=== PATIENT | female | born 1955 | race Caucasian/White ===

== ENCOUNTER 2018-03-18 15:25 | Emergency (ER) | END 2018-03-18 18:35 | disposition home or self-care (01) ==

== ENCOUNTER 2018-06-10 23:51 | Emergency (ER) | payer OTHER ==
[~2018-06-10] VITALS: Ht 165.1 cm; Wt 97.7 kg
[~2018-06-10 23:51] MED LIST: ASPI-650 PO; CLON-379 PO; HYDR25TA6 PO; IBUP-1542 PO; INSU100V23 SC; LANS30TA6 PO; METO-335 PO; NPH,100V10 SC; PANT40TA3 PO; SIME125T7 PO
[2018-06-11] MEDS ORDERED: METOCLOPRAMIDE 10 MG INJ IM ONE
[2018-06-11 00:03] VITALS: Ht 165.1 cm; Wt 97.7 kg
--- NOTE | 2018-06-11 01:31 | ERD ---
ER Documentation Chief Complaint Chief Complaint ETOH X4 SHOTS OF TEQUILA + BEERS; VOMITING AND HTN ON ARRIVAL HPI This is a 63-year-old female who comes in vomiting after she had 4 shots of tequila multiple beers. Patient was vomiting on route via EMS. She does not normally drink. Denies any fevers or chills. Denies any other current complaints. ROS All systems reviewed and are negative except as per history of present illness. Medications Home Meds Active Scripts Simethicone (Gas-X) 125 Mg Tab.chew, 125 MG PO QID, #20 TAB.CHEW Prov:DANYEL CARTAGENA MD 03/18/18 Ibuprofen* (Ibuprofen*) 600 Mg Tablet, 600 MG PO Q6H PRN for PAIN, #20 TAB Prov:DANYEL CARTAGENA MD 03/18/18 Pantoprazole* (Protonix*) 40 Mg Tablet.dr, 40 MG PO DAILY, #20 TAB Prov:DANYEL CARTAGENA MD 03/18/18 Reported Medications Nph, Human Insulin Isophane* (Novolin N*) 100 U/Ml Vial, 70 UNIT SC BID, VIAL 04/26/14 Insulin Regular, Human* (Novolin R*) 100 U/Ml Vial, 5 UNIT SC AC MEALS, VIAL 04/26/14 Metoprolol Succinate* (Toprol XL*) 25 Mg Tab.sr.24h, 25 MG PO BID, TAB 04/26/14 Lansoprazole* (Prevacid* Soltab) 30 Mg Tab, 30 MG PO DAILY 09/09/09 Clonidine Hcl* (Clonidine Hcl*) 0.1 Mg Tab, 0.1 MG PO QID 09/09/09 Aspirin (Aspirin) 81 Mg Tablet, 81 MG PO DAILY 06/17/09 Hydrochlorothiazide (Hydrochlorothiazide) 25 Mg Tablet, 25 MG PO DAILY 06/17/09 Allergies Allergies: Coded Allergies: morphine (Verified Allergy, Unknown, 04/26/14) PMhx/Soc History of Surgery: Yes ( X 2,TUBAL LIGATION) Anesthesia Reaction: No Hx Neurological Disorder: No Hx Respiratory Disorders: Yes (ASTHMA) Hx Cardiac Disorders: Yes (HTN) Hx Psychiatric Problems: Yes (DEPRESSION) Hx Miscellaneous Medical Probl: Yes (HEP C) Hx Alcohol Use: Yes (SOMETIMES) Hx Substance Use: No Hx Tobacco Use: No Smoking Status: Never smoker Physical Exam Vitals Vital Signs Date Temp Pulse Resp B/P (MAP) Pulse Ox O2 O2 Flow FiO2 Time Delivery Rate 06/11/18 87 24 197/117 98 00:03 (143) Physical Exam Const: No acute distress Head: Atraumatic Eyes: Normal Conjunctiva ENT: Normal External Ears, Nose and Mouth. Neck: Full range of motion. No meningismus. Resp: Clear to auscultation bilaterally Cardio: Regular rate and rhythm, no murmurs Abd: Soft, non tender, non distended. Normal bowel sounds Skin: No petechiae or rashes Back: No midline or flank tenderness Ext: No cyanosis, or edema Neur: Awake and alert Psych: Normal Mood and Affect Results 24 hrs Current Medications Medications Dose Sig/Maday Start Time Status Last (Trade) Ordered Route PRN Stop Time Admin Dose Reason Admin 10 mg ONCE ONCE 06/11/18 DC 06/11/18 Metoclopramid IM 00:00 06/11/18 00:06 e HCl 00:03 (Reglan) Procedures/MDM Medical decision m[age]-year-old female here with alcohol intoxication. Given Reglan intramuscularly with good effect. At this point clinically stable. Patient will be discharged home. Departure Diagnosis: Primary Impression: Alcoholic intoxication Complication of substance-induced condition: uncomplicated Qualified Codes: F10.920 - Alcohol use, unspecified with intoxication, uncomplicated Condition: Stable Patient Instructions: Alcohol Intoxication JUAN LUIS MCCABE Jun 11, 2018 01:31
[2018-06-11 01:47] VITALS: BP 131/83; PULSE 89; RESP 16
== END 2018-06-11 01:45 | disposition home or self-care (01) ==
LOC: E/R 23:51
DX: F10.920 Alcohol use, unspecified with intoxication, uncomplicated (principal); R40.2142 Coma scale, eyes open, spontaneous, at arrival to emergency department; R40.2362 Coma scale, best motor response, obeys commands, at arrival to emergency department; R40.2242 Coma scale, best verbal response, confused conversation, at arrival to emergency department; I10 Essential (primary) hypertension; J45.909 Unspecified asthma, uncomplicated; Z79.4 Long term (current) use of insulin; Z79.82 Long term (current) use of aspirin
CPT/HCPCS: 96372; J2765; Z7502

== ENCOUNTER 2018-09-15 14:44 | Emergency (ER) | payer OTHER ==
[~2018-09-15] VITALS: Ht 165.1 cm; Wt 103.1 kg
[2018-09-15 14:57] VITALS: Ht 165.1 cm; Wt 103.1 kg
--- NOTE | 2018-09-15 16:45 | ERD ---
ER Documentation Chief Complaint Chief Complaint lower extremity swelling x3 days HPI The patient is a 63-year-old female, presenting to the ER because of bilateral lower extremity swelling for 1 week, had similar symptoms previously, denies fever, chills, cough, neck pain, chest pain, dyspnea, abdominal pain, vomiting, diarrhea. She does not smoke, drinks socially Medical history: Diabetes mellitus, hypertension, asthma, depression, hepatitis C, anxiety Past surgical history: , tubal ligation ROS All systems reviewed and are negative except as per history of present illness. Medications Home Meds Active Scripts Sulfamethoxazole/Trimethoprim* (Bactrim Ds* Tablet) 1 Each Tablet, 1 TAB PO BID, #14 TAB Prov:DANYEL CARTAGENA MD 09/15/18 Reported Medications Triamcinolone Acetonide* (Kenalog*) 0.1%-15GM Cr, 1 APPLIC TOP BID, #1 TUB 09/15/18 Mineral Oil/Petrolatum,White (ARTIFICIAL TEARS EYE OINT) 3.5 Gm Oint...g., 1 AP PLIC RIGHT EYE BID, #1 TUB 09/15/18 Amlodipine Besylate* (Norvasc*) 5 Mg Tablet, 5 MG PO DAILY, TAB 09/15/18 Mometasone Furoate (Asmanex) 110 Mcg Aer.pow.ba, 220 MCG IH BID 09/15/18 Metoprolol Tartrate* (Lopressor*) 50 Mg Tab, 50 MG PO BID, #60 TAB 09/15/18 Metformin Hcl* (Metformin Hcl*) 1,000 Mg Tablet, 1000 MG PO WITH BREAKFAST DINNE, #60 TAB 09/15/18 Losartan Potassium* (Losartan Potassium*) 100 Mg Tablet, 100 MG PO DAILY, TAB 09/15/18 Loratadine* (Loratadine*) 10 Mg Tablet, 10 MG PO DAILY, #30 TAB 09/15/18 Insulin Regular, Human (Humulin R) 100 Unit/1 Ml Vial, 0 IJ BID, VIAL 30 UNITS-QAM AND 20 UNITS-QPM 09/15/18 Insulin NPH Human Isophane (Humulin N) 100 Unit/1 Ml Vial, 0 SQ BID, VIAL 60 UNITS-QAM AND 40 UNITS-QPM 09/15/18 Hydrochlorothiazide* (Hydrochlorothiazide*) 25 Mg Tab, 25 MG PO DAILY, #30 TAB 09/15/18 Famotidine* (Famotidine*) 20 Mg Tablet, 20 MG PO BID, #60 TAB 09/15/18 Hydrophilic Base* (Aquaphor*) 454 Gm-Topical Oint, 1 APPLIC TOP BID, JAR 09/15/18 Clotrimazole* (Clotrimazole* AF) 1% - 30 Gm Cream.gm., 1 APPLIC TOP BID, TUB 09/15/18 Citalopram Hydrobromide* (Citalopram Hydrobromide*) 20 Mg Tablet, 20 MG PO DAILY, #30 TAB 09/15/18 Ammonium Lactate* (Lac-Hydrin* 12% (225gm)) 1 Applic Lotion, 1 APPLIC TOP BID, BOTTLE 09/15/18 Albuterol Sulfate (Proair Respiclick) 90 Mcg Aer.pow.ba, 2 PUFFS INHALATION Q4H PRN for WHEEZING AND SOB, #1 BOTTLE 09/15/18 Discontinued Reported Medications Nph, Human Insulin Isophane* (Novolin N*) 100 U/Ml Vial, 70 UNIT SC BID, VIAL 04/26/14 Insulin Regular, Human* (Novolin R*) 100 U/Ml Vial, 5 UNIT SC AC MEALS, VIAL 04/26/14 Metoprolol Succinate* (Toprol XL*) 25 Mg Tab.sr.24h, 25 MG PO BID, TAB 04/26/14 Lansoprazole* (Prevacid* Soltab) 30 Mg Tab, 30 MG PO DAILY 09/09/09 Clonidine Hcl* (Clonidine Hcl*) 0.1 Mg Tab, 0.1 MG PO QID 09/09/09 Aspirin (Aspirin) 81 Mg Tablet, 81 MG PO DAILY 06/17/09 Hydrochlorothiazide (Hydrochlorothiazide) 25 Mg Tablet, 25 MG PO DAILY 06/17/09 Discontinued Scripts Simethicone (Gas-X) 125 Mg Tab.chew, 125 MG PO QID, #20 TAB.CHEW Prov:DANYEL CARTAGENA MD 03/18/18 Ibuprofen* (Ibuprofen*) 600 Mg Tablet, 600 MG PO Q6H PRN for PAIN, #20 TAB Prov:DANYEL CARTAGENA MD 03/18/18 Pantoprazole* (Protonix*) 40 Mg Tablet.dr, 40 MG PO DAILY, #20 TAB Prov:DANYEL CARTAGENA MD 03/18/18 Allergies Allergies: Coded Allergies: morphine (Verified Allergy, Unknown, 09/15/18) PMhx/Soc History of Surgery: Yes ( X 2,TUBAL LIGATION) Anesthesia Reaction: No Hx Neurological Disorder: No Hx Respiratory Disorders: Yes (ASTHMA) Hx Cardiac Disorders: Yes (HTN) Hx Psychiatric Problems: Yes (DEPRESSION) Hx Miscellaneous Medical Probl: Yes (HEP C) Hx Alcohol Use: Yes (SOMETIMES) Hx Substance Use: No Hx Tobacco Use: No Physical Exam Vitals Vital Signs Date Temp Pulse Resp B/P (MAP) Pulse Ox O2 O2 Flow FiO2 Time Delivery Rate 09/15/18 77 18 164/86 100 Room Air 19:07 (112) 09/15/18 98.3 86 20 155/109 98 Room Air 17:37 (124) 09/15/18 Nasal 17:17 Cannula 09/15/18 97.9 91 18 194/90 99 14:57 (124) Physical Exam Const: No acute distress. Head: Atraumatic. Eyes: Normal Conjunctiva. ENT: Normal External Ears, Nose and Mouth. Neck: Full range of motion. No meningismus. Resp: Clear to auscultation bilaterally. Cardio: Regular rate and rhythm. Abd: Soft, non distended, normal bowel sounds, non tender. Skin: No petechiae or rashes. Back: No midline or flank tenderness. Ext: Mild bilateral leg edema, vague calf discomfort Neur: Awake and alert. No focal deficit Psych: Anxious Result Diagram: 09/15/18 1733 09/15/18 1733 Results 24 hrs Laboratory Tests Test 09/15/18 17:19 09/15/18 17:33 Bedside Urine pH (LAB) 5.5 Bedside Urine Protein (LAB) 1+ Bedside Urine Glucose (UA) Negative Bedside Urine Ketones (LAB) Negative Bedside Urine Blood Negative Bedside Urine Nitrite (LAB) Negative Bedside Urine Leukocyte Esterase (L 1+ White Blood Count 7.2 10^3/ul Red Blood Count 4.04 10^6/ul Hemoglobin 11.5 g/dl Hematocrit 35.0 % Mean Corpuscular Volume 86.6 fl Mean Corpuscular Hemoglobin 28.5 pg Mean Corpuscular Hemoglobin Concent 32.9 g/dl Red Cell Distribution Width 14.6 % Platelet Count 238 10^3/UL Mean Platelet Volume 11.4 fl Immature Granulocytes % 0.300 % Neutrophils % 46.3 % Lymphocytes % 41.2 % Monocytes % 7.3 % Eosinophils % 4.3 % Basophils % 0.6 % Nucleated Red Blood Cells % 0.0 /100WBC Immature Granulocytes # 0.020 10^3/ul Neutrophils # 3.3 10^3/ul Lymphocytes # 3.0 10^3/ul Monocytes # 0.5 10^3/ul Eosinophils # 0.3 10^3/ul Basophils # 0.0 10^3/ul Nucleated Red Blood Cells # 0.0 10^3/ul Sodium Level 138 mmol/L Potassium Level 3.9 mmol/L Chloride Level 102 mmol/L Carbon Dioxide Level 27 mmol/L Anion Gap 9 Blood Urea Nitrogen 35 mg/dl Creatinine 1.03 mg/dl Est Glomerular Filtrat Rate mL/min 54 mL/min Glucose Level 135 mg/dl Calcium Level 9.3 mg/dl Total Bilirubin 0.2 mg/dl Direct Bilirubin 0.00 mg/dl Indirect Bilirubin 0.2 mg/dl Aspartate Amino Transf (AST/SGOT) 188 IU/L Alanine Aminotransferase (ALT/SGPT) 163 IU/L Alkaline Phosphatase 262 IU/L B-Type Natriuretic Peptide 257 PG/ML Total Protein 7.7 g/dl Albumin 3.9 g/dl Globulin 3.80 g/dl Albumin/Globulin Ratio 1.02 Current Medications Medications Dose Sig/Maday Start Time Status Last (Trade) Ordered Route PRN Stop Time Admin Dose Reason Admin Lorazepam 0.5 mg ONCE ONCE 09/15/18 DC 09/15/18 (Ativan) PO 17:00 09/15/18 17:09 17:01 Procedures/[place] [id number] Radiology Main Line: [phone] DIAGNOSTIC IMAGING REPORT Patient: ANDRE BLAND : 1955 Age: 63 Sex: F MR #: [id number] DOS: 09/15/18 1658 Ordering MD: DANYEL CARTAGENA MD Location: E/R Room/Bed: PROCEDURE: XR Chest 1 View. CLINICAL INDICATION: Shortness of breath. TECHNIQUE: Single view of the chest was obtained. COMPARISON: None. FINDINGS: Mediastinum: Within normal limits of size. Lungs: Scattered subsegmental atelectasis in both lungs. Mildly elevated right hemidiaphragm. No consolidations. No pneumothorax. Osseous structures: Intact. Degenerative changes in the shoulders. Other: None. IMPRESSION: Scattered subsegmental atelectasis in both lungs. Mildly elevated right hemidiaphragm. RPTAT: AA .Efraín García MD, Date Time Electronically viewed and signed by .Efraín García MD, MD on 09/15/2018 18:21 .P/ CC: DANYEL CARTAGENA MD [id number] [place] [id number] Radiology Main Line: [phone] DIAGNOSTIC IMAGING REPORT Patient: ANDRE BLAND : 1955 Age: 63 Sex: F MR #: [id number] DOS: 09/15/18 1658 Ordering MD: DANYEL CARTAGENA MD Location: E/R Room/Bed: PROCEDURE: US Bilateral Lower Extremity Venous. CLINICAL INDICATION: Lower extremity pain and swelling. TECHNIQUE: Multiple sonographic images of the bilateral lower extremity deep venous system was obtained utilizing grayscale, color-flow, Doppler and compressive sonography. The images were reviewed on a PACS workstation. COMPARISON: None. FINDINGS: Right: Common femoral vein: Compressible and vascular flow. Femoral vein: Compressible and vascular flow. Popliteal vein: Compressible and vascular flow. Calf veins: Compressible and vascular flow. Left: Common femoral vein: Compressible and vascular flow. Femoral vein: Compressible and vascular flow. Popliteal vein: Compressible and vascular flow. Calf veins: Compressible and vascular flow. IMPRESSION: No sonographic evidence for deep venous thrombosis. RPTAT: AA .Efraín García MD, MD Date Time Electronically viewed and signed by .Efraín García MD, MD on 09/15/2018 18:22 .P/ CC: DANYEL CARTAGENA MD [id number] EKG: Read by emergency physician Rate/Rhythm: Normal Sinus Rhythm 77 beats/min QRS, ST, T-waves: No ST elevation, no T inversion Impression: Normal EKG MEDICAL MAKING DECISION: The patient is a 73-year-old female, presenting with acute cystitis, acute anxiety, peripheral edema. She was treated with Ativan 0.5 mg p.o. for acute anxiety with good response The differential diagnoses considered include but are not limited to hepatic insufficiency, renal deficiency, DVT, lymphedema, CHF Departure Diagnosis: Primary Impression: Peripheral edema Additional Impressions: UTI (urinary tract infection) Anxiety Abnormal LFTs Anemia Condition: Good Comments She was discharged with Bactrim DS I discussed the findings with the patient. I advised the patient to follow-up with the primary physician in about 2-3 days, sooner if needed and return if any concern. Disclaimer: Inadvertent spelling and grammatical errors are likely due to EHR/dictation software use and do not reflect on the overall quality of patient care. Also, please note that the electronic time recorded on this note does not necessarily reflect the actual time of the patient encounter. DANYEL CARTAGENA MD Sep 15, 2018 16:45
[2018-09-15] MEDS ORDERED: LORAZEPAM 0.5 MG TAB PO ONE (17:00)
[2018-09-15] MEDS ORDERED: ALBU90AE INHALATION (17:10)
[2018-09-15] MEDS ORDERED: CITA20TA8 PO (17:11)
[2018-09-15] MEDS ORDERED: LACHYD12 TOP (17:11)
[2018-09-15] MEDS ORDERED: CLOT30CR24 TOP (17:12)
[2018-09-15] MEDS ORDERED: FAMO20TA18 PO (17:15)
[2018-09-15] MEDS ORDERED: HDRP454O TOP (17:15)
[2018-09-15] MEDS ORDERED: HYDR25TA6 PO (17:16)
[2018-09-15] MEDS ORDERED: NPH,100V SQ (17:17)
[2018-09-15] MEDS ORDERED: INSU100V3 IJ (17:18)
[2018-09-15] MEDS ORDERED: LORA10TA3 PO (17:19)
[2018-09-15] MEDS ORDERED: LOSA100T15 PO (17:20)
[2018-09-15] MEDS ORDERED: METO-429 PO (17:20)
[2018-09-15] MEDS ORDERED: METF100010 PO (17:20)
[2018-09-15] MEDS ORDERED: AMLO5TAB4 PO (17:22)
[2018-09-15] MEDS ORDERED: MOME0.13 IH (17:22)
[2018-09-15] MEDS ORDERED: MINE3.5O30 RIGHT EYE (17:24)
[2018-09-15] MEDS ORDERED: TRIA15CR55 TOP (17:25)
[2018-09-15] MEDS ORDERED: SULF1TAB31 PO (18:31)
[2018-09-15 19:07] VITALS: BP 164/86; PULSE 77; RESP 18
== END 2018-09-15 19:08 | disposition home or self-care (01) ==
LOC: E/R 14:44
DX: R60.0 Localized edema (principal); N39.0 Urinary tract infection, site not specified; F41.9 Anxiety disorder, unspecified; D64.9 Anemia, unspecified; R94.5 Abnormal results of liver function studies; I10 Essential (primary) hypertension; E11.9 Type 2 diabetes mellitus without complications; J45.909 Unspecified asthma, uncomplicated; Z79.4 Long term (current) use of insulin
CPT/HCPCS: 36415; 71045; 80053; 81003; 83880; 85025; 93005; 93970; Z7502; Z7610

== ENCOUNTER 2018-09-30 10:54 | Emergency (ER) | payer OTHER ==
[~2018-09-30] VITALS: Ht 160 cm; Wt 100.0 kg
[~2018-09-30 10:54] MED LIST changes: +ALBU90AE INHALATION; +AMLO5TAB4 PO; -ASPI-650 PO; +CITA20TA8 PO; -CLON-379 PO; +CLOT30CR24 TOP; +FAMO20TA18 PO; +HDRP454O TOP; -IBUP-1542 PO; -INSU100V23 SC; +INSU100V3 IJ; +LACHYD12 TOP; -LANS30TA6 PO; +LORA10TA3 PO; +LOSA100T15 PO; +METF100010 PO; -METO-335 PO; +METO-429 PO; +MINE3.5O30 RIGHT EYE; +MOME0.13 IH; +NPH,100V SQ; -NPH,100V10 SC; -PANT40TA3 PO; -SIME125T7 PO; +SULF1TAB31 PO; +TRIA15CR55 TOP
[2018-09-30 10:56] VITALS: Ht 160 cm; Wt 100.0 kg
--- NOTE | 2018-09-30 11:31 | ERD ---
ER Documentation Chief Complaint Chief Complaint pt is bib daughter with c/o sob since last night, hx asthma HPI This is a 63-year-old female with a past medical history of hypertension, diabetes, COPD/asthma who is presenting with 1 day of progressive subjective fever, feeling generally unwell, productive cough of clear sputum and shortness of breath. The patient does not have any wheezing today. She is not endorse any chest pain or pleuritic pain or chest tightness. She does not endorse any lightheadedness or dizziness. She does not endorse any diaphoresis. The patient has had no headache or vision changes. The patient does not endorse neck or back pain. The patient denies abdominal pain. The patient denies changes to bowel movements or urination. The patient has had no focal deficits. The patient has had no weakness or numbness or tingling to the face or extremities. ROS All systems reviewed and are negative except as per history of present illness. Medications Home Meds Reported Medications Triamcinolone Acetonide* (Kenalog*) 0.1%-15GM Cr, 1 APPLIC TOP BID, #1 TUB 09/15/18 Mineral Oil/Petrolatum,White (ARTIFICIAL TEARS EYE OINT) 3.5 Gm Oint...g., 1 APPLIC RIGHT EYE BID, #1 TUB 09/15/18 Amlodipine Besylate* (Norvasc*) 5 Mg Tablet, 5 MG PO DAILY, TAB 09/15/18 Mometasone Furoate (Asmanex) 110 Mcg Aer.pow.ba, 220 MCG IH BID 09/15/18 Metoprolol Tartrate* (Lopressor*) 50 Mg Tab, 50 MG PO BID, #60 TAB 09/15/18 Metformin Hcl* (Metformin Hcl*) 1,000 Mg Tablet, 1000 MG PO WITH BREAKFAST DINNE, #60 TAB 09/15/18 Losartan Potassium* (Losartan Potassium*) 100 Mg Tablet, 100 MG PO DAILY, TAB 09/15/18 Loratadine* (Loratadine*) 10 Mg Tablet, 10 MG PO DAILY, #30 TAB 09/15/18 Insulin Regular, Human (Humulin R) 100 Unit/1 Ml Vial, 0 IJ BID, VIAL 30 UNITS-QAM AND 20 UNITS-QPM 09/15/18 Insulin NPH Human Isophane (Humulin N) 100 Unit/1 Ml Vial, 0 SQ BID, VIAL 60 UNITS-QAM AND 40 UNITS-QPM 09/15/18 Hydrochlorothiazide* (Hydrochlorothiazide*) 25 Mg Tab, 25 MG PO DAILY, #30 TAB 09/15/18 Famotidine* (Famotidine*) 20 Mg Tablet, 20 MG PO BID, #60 TAB 09/15/18 Hydrophilic Base* (Aquaphor*) 454 Gm-Topical Oint, 1 APPLIC TOP BID, JAR 09/15/18 Clotrimazole* (Clotrimazole* AF) 1% - 30 Gm Cream.gm., 1 APPLIC TOP BID, TUB 09/15/18 Citalopram Hydrobromide* (Citalopram Hydrobromide*) 20 Mg Tablet, 20 MG PO DAILY, #30 TAB 09/15/18 Ammonium Lactate* (Lac-Hydrin* 12% (225gm)) 1 Applic Lotion, 1 APPLIC TOP BID, BOTTLE 09/15/18 Albuterol Sulfate (Proair Respiclick) 90 Mcg Aer.pow.ba, 2 PUFFS INHALATION Q4H PRN for WHEEZING AND SOB, #1 BOTTLE 09/15/18 Discontinued Scripts Sulfamethoxazole/Trimethoprim* (Bactrim Ds* Tablet) 1 Each Tablet, 1 TAB PO BID, #14 TAB Prov:DANYEL CARTAGENA MD 09/15/18 Allergies Allergies: Coded Allergies: morphine (Verified Allergy, Unknown, 09/30/18) PMhx/Soc History of Surgery: No Anesthesia Reaction: No Hx Neurological Disorder: No Hx Respiratory Disorders: Yes (COPD/asthma) Hx Cardiac Disorders: Yes (Hypertension, diabetes) Hx Psychiatric Problems: No Hx Miscellaneous Medical Probl: Yes Hx Alcohol Use: No Hx Substance Use: No Hx Tobacco Use: No FmHx Family History: diabetes Physical Exam Vitals Vital Signs Date Temp Pulse Resp B/P (MAP) Pulse Ox O2 O2 Flow FiO2 Time Delivery Rate 09/30/18 92 16 131/89 100 Room Air 11:10 (103) 09/30/18 98.3 77 22 158/81 95 10:56 (106) Physical Exam Const: No apparent distress, well-developed, well-nourished Head: Normocephalic, Atraumatic Eyes: Normal Conjunctiva. Extraocular movements intact. Pupils equal, round and reactive to light ENT: Normal External Ears, Nose and Mouth. Neck: Full range of motion. No meningismus. Resp: Clear to auscultation bilaterally, No wheezes, rales or rhonchi Cardio: Regular rate and rhythm. No murmurs, rubs or gallops Abd: Obese. Soft, non tender, non distended. Normal bowel sounds Skin: No petechiae or rashes Back: No midline tenderness. No CVA tenderness Ext: No cyanosis, or edema Neur: Awake and alert, oriented 4. Cranial nerves intact. No facial droop. Normal strength, sensation and coordination. Psych: Normal Mood and Affect Result Diagram: 09/30/18 1115 09/30/18 1115 Results 24 hrs Laboratory Tests Test 09/30/18 11:15 White Blood Count 6.5 10^3/ul Red Blood Count 4.21 10^6/ul Hemoglobin 11.8 g/dl Hematocrit 36.6 % Mean Corpuscular Volume 86.9 fl Mean Corpuscular Hemoglobin 28.0 pg Mean Corpuscular Hemoglobin Concent 32.2 g/dl Red Cell Distribution Width 15.3 % Platelet Count 235 10^3/UL Mean Platelet Volume 10.8 fl Immature Granulocytes % 0.200 % Neutrophils % 44.4 % Lymphocytes % 39.9 % Monocytes % 8.1 % Eosinophils % 6.3 % Basophils % 1.1 % Nucleated Red Blood Cells % 0.0 /100WBC Immature Granulocytes # 0.010 10^3/ul Neutrophils # 2.9 10^3/ul Lymphocytes # 2.6 10^3/ul Monocytes # 0.5 10^3/ul Eosinophils # 0.4 10^3/ul Basophils # 0.1 10^3/ul Nucleated Red Blood Cells # 0.0 10^3/ul Sodium Level 141 mmol/L Potassium Level 4.5 mmol/L Chloride Level 102 mmol/L Carbon Dioxide Level 32 mmol/L Anion Gap 7 Blood Urea Nitrogen 31 mg/dl Creatinine 1.39 mg/dl Est Glomerular Filtrat Rate mL/min 38 mL/min Glucose Level 180 mg/dl Calcium Level 9.8 mg/dl Troponin I < 0.012 ng/ml B-Type Natriuretic Peptide 77 PG/ML Procedures/MDM MDM The patient's presentation warrants further investigation. Previous medical records, if available, were reviewed. LABS The patient's laboratory testing was obtained and reviewed. No emergent treatment was required unless described below. CBC: No E/o systemic infection or thrombocytopenia. Mild normocytic anemia, not emergent. Chemistry: No E/o severe acidosis or diabetic ketoacidosis. 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 Metabolic alkalosis, not emergent. Troponin: No E/o acute ischemia BNP: No E/o heart failure EKG EKG read by me: Rate/Rhythm: Regular rate and rhythm at a rate of 88 bpm Intervals: Normal [place]: Normal Impression: No evidence of acute ischemia or arrhythmia IMAGING Imaging and Radiology interpretation reviewed. CXR FINDINGS: The lungs are clear of acute infiltrates, edema, effusions, or masses.. The cardiomediastinal silhouette is unremarkable. The osseous structures are intact. Degenerative disk changes of the spine are present. IMPRESSION: No acute cardiopulmonary disease. Electronically viewed and signed by .Logan Sutton MD, on 09/30/2018 11:43 TREATMENT/DISPOSITION The patient's symptoms are most consistent with an upper respiratory infection. The patient does carry a diagnosis of asthma/COPD but is not wheezing today. I do not suspect a COPD exacerbation currently. The patient does not have a history of heart failure and I have low suspicion for this. The patient is not tachypneic or hypoxic. The patient is breathing comfortably and without pleuritic pain. The patient is not on hormonal therapy. The patient has no history of clotting or bleeding disorders. The patient has no calf tenderness. The patient has had no hemoptysis. I have decreased suspicion for PE. The patient's troponin and EKG are reassuring. I have low suspicion for acute coronary syndrome. The patient's symptoms are not consistent with influenza. The chest xray does not reveal pneumonia or pneumothorax or pleural effusions or pulmonary edema. The patient does not have a widened mediastinum and does not have signs or symptoms concerning for thoracic aortic aneurysm or dissection. The patient does not have pneumomediastinum or signs concerning for esophageal tear or rupture. The patient has no clinical or radiographic signs of pericardial effusion or tamponade. The patient does not have pneumoperitoneum and I have decreased suspicion of viscus perforation as possible referred pain. DISCHARGE Upon reevaluation of the patient, symptoms have improved. No emergent diagnoses were identified. At this time, I feel that the patient stable for discharge. The patient was instructed to follow-up with a primary care physician in 1-3 days. The patient will be given strict precautions with which to return to the emergency department. Prescriptions: Ibuprofen, Tessalon Perle The patient's blood pressure was elevated at greater than 120/80 while in the emergency department. The patient was otherwise stable with no evidence of hypertensive urgency or emergency. The patient does not require admission for blood pressure control. I have discussed with the patient the risks of hypertension. I have instructed the patient to return to the ER for any new or worsening symptoms including chest pain, shortness of breath, headache, blurred vision, confusion, nausea, vomiting or LOC. I have advised the patient to follow up with the primary care physician for outpatient monitoring and treatment for hypertension in 1-3 days. Disclaimer: Inadvertent spelling and grammatical errors are likely due to EHR/dictation software use and do not reflect on the overall quality of patient care. Note that the electronic time recorded on this note does not necessarily reflect the actual time of the patient encounter. Departure Diagnosis: Primary Impression: Upper respiratory infection URI type: unspecified URI Qualified Codes: J06.9 - Acute upper respiratory infection, unspecified Additional Impressions: Cough Nasal congestion Normocytic anemia Chronic kidney disease Chronic kidney disease stage: unspecified stage Qualified Codes: N18.9 - Chronic kidney disease, unspecified Metabolic alkalosis Condition: Stable Patient Instructions: Cough, Chronic, Uncertain Cause, (Adult) Additional Instructions: Thank you for for coming to [facility] for your care today. Please ask your nurse or provider if you have questions about your care today and do not leave until all your questions have been answered. Please use any medications given as directed and follow-up with your doctor (or the doctor you were referred to) in the next 1-3 days. If you do not have a primary care doctor you may follow up at the [facility] or [facility] (listed below). You may also use motrin and tylenol as needed for fever and/or pain unless instructed otherwise by your provider or nurse. Indications for more urgent follow-up have been discussed, but you may return to the Emergency Department at ANY time for any worrisome or worsening symptoms. If you have abdominal pain, please know that no test or exam you received is perfect and you should follow up within 8 hours for continued pain. If you had any imaging studies today, such as an X-Ray or CT Scan, these studies will be reviewed later by a radiologist. You will be called if there are important findings that were not identified today, so make sure the contact information you provided at registration is correct. If you received any narcotic pain control medicine today, such as Vicodin, Morphine or Dilaudid, your coordination and judgment may be affected for a number of hours. Please do not drive or operate heavy machinery, and you may want someone to assist you at home. If you were given a prescription for narcotic medication, be aware that it is very addictive- use sparingly and only if necessary. PLEASE SEEK FURTHER EVALUATION AND MANAGEMENT AT YOUR DOCTORS OFFICE WITHIN THE NEXT 1-3 DAYS. IT IS YOUR RESPONSIBILITY TO MAKE AN APPOINTMENT FOR FOLOW-UP CARE. IF YOU HAVE A PRIMARY DOCTOR, PLEASE CALL THEIR OFFICE TO SCHEDULE AN APPOIN TMENT FOR FOLLOW UP. IF YOU DO NOT HAVE A PRIMARY DOCTOR YOU CAN CALL OUR PHYSICIAN REFERRAL HOTLINE AT IF YOU CAN NOT AFFORD TO SEE A PHYSICIAN YOU CAN CHOSE FROM THE FOLLOWING [facility]: [facility] [address] [facility] [address] [facility] [facility] [address] [facility] [address] [facility]. [facility] [address]. [facility]. [address] FUNMI WHITLEY MD Sep 30, 2018 11:29
[2018-09-30] MEDS ORDERED: IBUP-1542 PO (12:19)
[2018-09-30] MEDS ORDERED: BENZ-6 PO (12:19)
[2018-09-30 12:24] VITALS: BP 137/87; PULSE 89; RESP 17
== END 2018-09-30 12:30 | disposition home or self-care (01) ==
LOC: E/R 10:54
DX: J06.9 Acute upper respiratory infection, unspecified (principal); E87.3 Alkalosis; E11.22 Type 2 diabetes mellitus with diabetic chronic kidney disease; J44.9 Chronic obstructive pulmonary disease, unspecified; N18.9 Chronic kidney disease, unspecified; I12.9 Hypertensive chronic kidney disease with stage 1 through stage 4 chronic kidney disease, or unspecified chronic kidney disease; Z79.4 Long term (current) use of insulin
CPT/HCPCS: 36415; 71045; 80048; 83880; 84484; 85025; 93005; Z7502

== ENCOUNTER 2018-10-22 14:53 | Emergency (ER) | payer OTHER ==
[~2018-10-22] VITALS: Wt 100.9 kg
[~2018-10-22 14:53] MED LIST changes: +BENZ-6 PO; +IBUP-1542 PO; -SULF1TAB31 PO
[2018-10-22] MEDS ORDERED: SOD CHLORIDE 0.9% 1,000 ML IV STA (16:12)
[2018-10-22] MEDS ORDERED: KETOROLAC 30 MG INJ IV STA (16:12)
[2018-10-22] MEDS: DEXAMETHASONE 10 MG/ML 1 ML INJ IV ONE ×2 (17:01→17:09)
[2018-10-22] MEDS ORDERED: CYCL10TA7 PO (20:23)
[2018-10-22] MEDS ORDERED: IBUP-1561 PO (20:23)
[2018-10-22] MEDS ORDERED: BENZ200C68 PO (20:29)
[2018-10-22 20:38] VITALS: BP 143/92; PULSE 84; RESP 17
--- NOTE | 2018-10-23 01:25 | ERD ---
ER Documentation Chief Complaint Chief Complaint cough, nausea, diarrhea, no appetite x1wk. HPI 63-year-old female with past medical history of hypertension and type 2 diabetes presenting to the emergency department by her family with complaints of left-sided low back pain with radiation down her left leg constantly for the past 3 days. Additionally patient has had decreased appetite, cough and intermittent nausea and left flank pain. She denies any chest pain, loss of bowel or bladder function, abdominal pain, or other symptoms at this time. ROS All systems reviewed and are negative except as per history of present illness. Medications Home Meds Active Scripts Benzonatate* (Benzonatate*) 200 Mg Capsule, 200 MG PO TID PRN for COUGH, #15 CAP Prov:JUAN LUIS LUA PA-C 10/22/18 Ibuprofen* (Motrin*) 400 Mg Tab, 400 MG PO Q6, #30 TAB Prov:JUAN LUIS LUA PA-C 10/22/18 Cyclobenzaprine Hcl* (Cyclobenzaprine Hcl*) 10 Mg Tablet, 10 MG PO TID, #15 TAB Prov:JUAN LUIS LUA PA-C 10/22/18 Benzonatate* (Tessalon Perle*) 100 Mg Capsule, 100 MG PO Q8H PRN for COUGH, #12 CAP Prov:FUNMI GUTIERREZ MD 09/30/18 Ibuprofen* (Motrin*) 600 Mg Tab, 600 MG PO Q6H PRN for PAIN AND/OR INFLAMMATION, #30 TAB Prov:FUNMI GUTIERREZ MD 09/30/18 Reported Medications Triamcinolone Acetonide* (Kenalog*) 0.1%-15GM Cr, 1 APPLIC TOP BID, #1 TUB 09/15/18 Mineral Oil/Petrolatum,White (ARTIFICIAL TEARS EYE OINT) 3.5 Gm Oint...g., 1 APPLIC RIGHT EYE BID, #1 TUB 09/15/18 Amlodipine Besylate* (Norvasc*) 5 Mg Tablet, 5 MG PO DAILY, TAB 09/15/18 Mometasone Furoate (Asmanex) 110 Mcg Aer.pow.ba, 220 MCG IH BID 09/15/18 Metoprolol Tartrate* (Lopressor*) 50 Mg Tab, 50 MG PO BID, #60 TAB 09/15/18 Metformin Hcl* (Metformin Hcl*) 1,000 Mg Tablet, 1000 MG PO WITH BREAKFAST DIN NE, #60 TAB 09/15/18 Losartan Potassium* (Losartan Potassium*) 100 Mg Tablet, 100 MG PO DAILY, TAB 09/15/18 Loratadine* (Loratadine*) 10 Mg Tablet, 10 MG PO DAILY, #30 TAB 09/15/18 Insulin Regular, Human (Humulin R) 100 Unit/1 Ml Vial, 0 IJ BID, VIAL 30 UNITS-QAM AND 20 UNITS-QPM 09/15/18 Insulin NPH Human Isophane (Humulin N) 100 Unit/1 Ml Vial, 0 SQ BID, VIAL 60 UNITS-QAM AND 40 UNITS-QPM 09/15/18 Hydrochlorothiazide* (Hydrochlorothiazide*) 25 Mg Tab, 25 MG PO DAILY, #30 TAB 09/15/18 Famotidine* (Famotidine*) 20 Mg Tablet, 20 MG PO BID, #60 TAB 09/15/18 Hydrophilic Base* (Aquaphor*) 454 Gm-Topical Oint, 1 APPLIC TOP BID, JAR 09/15/18 Clotrimazole* (Clotrimazole* AF) 1% - 30 Gm Cream.gm., 1 APPLIC TOP BID, TUB 09/15/18 Citalopram Hydrobromide* (Citalopram Hydrobromide*) 20 Mg Tablet, 20 MG PO DAILY, #30 TAB 09/15/18 Ammonium Lactate* (Lac-Hydrin* 12% (225gm)) 1 Applic Lotion, 1 APPLIC TOP BID, BOTTLE 09/15/18 Albuterol Sulfate (Proair Respiclick) 90 Mcg Aer.pow.ba, 2 PUFFS INHALATION Q4H PRN for WHEEZING AND SOB, #1 BOTTLE 09/15/18 Allergies Allergies: Coded Allergies: morphine (Verified Allergy, Unknown, 09/30/18) PMhx/Soc History of Surgery: No Anesthesia Reaction: No Hx Neurological Disorder: No Hx Respiratory Disorders: Yes (ASTHMA) Hx Cardiac Disorders: Yes (Hypertension, diabetes) Hx Psychiatric Problems: No Hx Miscellaneous Medical Probl: Yes (HEP C) Hx Alcohol Use: No Hx Substance Use: No Hx Tobacco Use: No Smoking Status: Never smoker FmHx Family History: No diabetes Physical Exam Vitals Vital Signs Date Temp Pulse Resp B/P (MAP) Pulse Ox O2 O2 Flow FiO2 Time Delivery Rate 5/15/19 98.0 84 17 143/92 98 Room Air 20:38 (109) 10/22/18 98.8 91 18 159/85 98 15:31 (109) Physical Exam Const: No acute distress Head: Atraumatic Eyes: Normal Conjunctiva ENT: Normal External Ears, Nose and Mouth. Neck: Full range of motion. No meningismus. Resp: Clear to auscultation bilaterally Cardio: Regular rate and rhythm, no murmurs Abd: Soft, non tender, non distended. Normal bowel sounds. No rebound tenderness or guarding. No McBurney's point tenderness. Skin: No petechiae or rashes Back: Tenderness palpation of the paraspinal muscles of the lumbar spine on the left. Positive straight leg raise on the left. Tenderness in the left flank region. Ext: No cyanosis, or edema Neur: Awake and alert Psych: Normal Mood and Affect Result Diagram: 10/22/18 1649 10/22/18 1649 Results 24 hrs Laboratory Tests Test 10/22/18 16:49 White Blood Count 9.2 10^3/ul Red Blood Count 4.38 10^6/ul Hemoglobin 12.3 g/dl Hematocrit 36.9 % Mean Corpuscular Volume 84.2 fl Mean Corpuscular Hemoglobin 28.1 pg Mean Corpuscular Hemoglobin Concent 33.3 g/dl Red Cell Distribution Width 13.9 % Platelet Count 243 10^3/UL Mean Platelet Volume 10.8 fl Immature Granulocytes % 0.400 % Neutrophils % 64.5 % Lymphocytes % 27.2 % Monocytes % 7.1 % Eosinophils % 0.5 % Basophils % 0.3 % Nucleated Red Blood Cells % 0.0 /100WBC Immature Granulocytes # 0.040 10^3/ul Neutrophils # 5.9 10^3/ul Lymphocytes # 2.5 10^3/ul Monocytes # 0.7 10^3/ul Eosinophils # 0.1 10^3/ul Basophils # 0.0 10^3/ul Nucleated Red Blood Cells # 0.0 10^3/ul Urine Color YELLOW Urine Clarity SLIGHTLY CLOUDY Urine pH 6.0 Urine Specific [place] 1.005 Urine Ketones NEGATIVE mg/dL Urine Nitrite NEGATIVE mg/dL Urine Bilirubin NEGATIVE mg/dL Urine Urobilinogen NEGATIVE mg/dL Urine Leukocyte Esterase TRACE Ward/ul Urine Microscopic RBC 1 /HPF Urine Microscopic WBC 5 /HPF Urine Squamous Epithelial Cells FEW /HPF Urine Hemoglobin 1+ mg/dL Urine Glucose NEGATIVE mg/dL Urine Total Protein 1+ mg/dl Sodium Level 132 mmol/L Potassium Level 4.1 mmol/L Chloride Level 94 mmol/L Carbon Dioxide Level 27 mmol/L Anion Gap 11 Blood Urea Nitrogen 19 mg/dl Creatinine 1.01 mg/dl Est Glomerular Filtrat Rate mL/min 56 mL/min Glucose Level 253 mg/dl Calcium Level 9.1 mg/dl Total Bilirubin 0.7 mg/dl Direct Bilirubin 0.00 mg/dl Indirect Bilirubin 0.7 mg/dl Aspartate Amino Transf (AST/SGOT) 120 IU/L Alanine Aminotransferase (ALT/SGPT) 150 IU/L Alkaline Phosphatase 262 IU/L Total Protein 8.2 g/dl Albumin 4.0 g/dl Globulin 4.20 g/dl Albumin/Globulin Ratio 0.95 Current Medications Medications Dose Sig/Maday Start Time Status Last (Trade) Ordered Route PRN Stop Time Admin Dose Reason Admin Sodium 1,000 ml @ Q1H STAT 10/22/18 DC 10/22/18 Chloride 1,000 mls/hr IV 16:12 17:01 10/22/18 17:11 Ketorolac 30 mg ONCE STAT 10/22/18 DC 10/22/18 Tromethamine IV 16:12 17:02 (Toradol) 10/22/18 16:14 10 mg ONCE ONCE 10/22/18 DC Dexamethasone IV 16:30 (Decadron) 10/22/18 16:31 [place] [address] Radiology Main Line: [phone] DIAGNOSTIC IMAGING REPORT Patient: ANDRE BLAND : 1955 Age: 63 Sex: F [facility] #[id number] [facility] #: [id number] DOS: 10/22/18 1612 Ordering MD: JUAN LUIS LUA PA-C Location: [facility] Room/Bed: PROCEDURE: XR Chest. CLINICAL INDICATION: Cough TECHNIQUE: AP chest x-ray. COMPARISON: CR CHEST 04/26/2014; CR CHEST 06/18/2009; CR PORT CHEST 04/04/2009 FINDINGS: The cardiomediastinal silhouette is unremarkable. The lungs are clear. No focal opacification is seen. There is no pleural effusion or pneumothorax. multilevel small spurs are seen along the thoracic spine, stable. IMPRESSION: Unremarkable chest x-ray. RPTAT: [facility] Physician Katherin Date Time Electronically viewed and signed by Physician Katherin on 10/22/2018 17:13 RL/ CC: JUAN LUIS LUA PA-C [id number] [place] [address] Radiology Main Line: [phone] DIAGNOSTIC IMAGING REPORT Patient: ANDRE BLAND : 1955 Age: 63 Sex: F MR #: [id number] DOS: 10/22/18 0000 Ordering MD: JUAN LUIS LUA PA-C Location: [facility] Room/Bed: PROCEDURE: CT abdomen and pelvis without contrast. CLINICAL INDICATION: Left flank pain. TECHNIQUE: CT scan of the abdomen and pelvis without contrast was performed. Sagittal and coronal reformatted images were obtained from the axial source images. DICOM images are available. One or more of the following dose reduction techniques were used: Automated exposure control, adjustment of the mA and/or kV according to patient size, use of iterative reconstruction technique. CTDI = 22.22 mGy; DLP = 1273.15 mGy-cm COMPARISON: None. FINDINGS: Visualized lower thorax: The lung bases are clear. There is no evidence for pleural effusion. Liver, gallbladder, pancreas and spleen: Nodular contour to the liver is concerning for cirrhosis, the liver size within the limits of normal with low attenuation suggesting hepatic steatosis. There is no evidence for a liver mass or ductal dilatation. Tiny gallstone in the dependent gallbladder fundus without evidence of pericholecystic inflammation to suggest cholecystitis. No common bile duct abnormality is demonstrated. The pancreas is unremarkable. The spleen is normal in size. Adrenal glands and genitourinary system: The adrenal glands are normal bilaterally. The kidneys are normal and size, contour and attenuation with no evidence for masses, calculi or hydronephrosis. The ureters are unremarkable. No urinary bladder abnormality is demonstrated. Hysterectomy changes are noted. No ovarian or adnexal mass is present. Gastrointestinal system: The stomach is normal in caliber with no abnormality of significance. The small bowel is normal in caliber with no ileus, obstruction or wall thickening. The appendix and surrounding fat are within the limits of normal. A few diverticula of the distal colon are suggested. There is no evidence for colitis or diverticulitis. Peritoneum, retroperitoneum, lymph nodes and vessels: The abdominal aorta is normal in caliber. There is mild aortic and iliac system atherosclerotic calcification. The inferior vena cava is unremarkable. There is no evidence for adenopathy or mass. There is no ascites. No pneumoperitoneum is present Osseous structures and musculoskeletal findings: There is no fracture, lytic or blastic lesion. Bridging syndesmophytes most likely reflect diffuse idiopathic skeletal hyperostosis.. Facet arthropathy and grade 1 anterolisthesis at L4-5 is present. There is facet arthropathy at L5-S1 No muscular abnormality or soft tissue pathology is present. RPTAT:HJJR IMPRESSION: 1. There is no evidence of urinary tract calculus or hydronephrosis. 2. Cirrhotic appearance the liver with hepatic steatosis. 3. Tiny gallstone in the gallbladder fundus without evidence for cholecystitis. 4. Prior hysterectomy. 5. Mild atherosclerotic calcification. 6. Diffuse idiopathic skeletal hyperostosis with facet arthropathy at L4-5 and L5-S1 including grade 1 anterolisthesis at the L4-5 level. Physician Eitan Date Time Electronically viewed and signed by Physician Eitan on 10/22/2018 20:08 JR/ CC: JUAN LUIS LUA PA-C [id number] Procedures/MDM 63-year-old female presented to the emergency department complaining of left low back pain and left flank pain. Patient was administered IV Toradol and IV Decadron in the department with good response. She was improved on reevaluation. CT abdomen and pelvis was obtained to rule out obstructive uropathy or other emergencies. The full report interpreted by the radiologist may be viewed above. There is no significant acute abnormalities noted in the abdomen or pelvis. CBC: no e/o of systemic infection or severe anemia CMP: no e/o severe acidosis, alkalosis, renal failure, diabetic ket oacidosis, liver disease Lipase: no e/o pancreatitis PT/INR: normal coagulation Urine: no e/o acute infection or hematuria Medical decision making: Patient's left-sided low back pain is likely secondary to sciatica. Patient's musculoskeletal symptoms have stabilized while they have been evaluated in the department and are appropriate for outpatient work up. No evidence of cauda equina, cord compression, infiltrative, or infectious etiology. No evidence of life-threatening pathology at time of discharge. Pt/family in agreement with discharge plan/diagnosis. Pt/family advised to return immediately with any new or worsening symptoms. Follow-up with primary care physician within the next 1-2 days. Patient's blood pressure was elevated (>120/80) but appears stable without evidence of hypertension emergency or urgency. The patient is to follow-up and pursue outpatient monitoring and therapy with their primary care physician within 1 week and return immediately if they have any new, worsening, or concerning symptoms. Disclaimer: Inadvertent spelling and grammatical errors are likely due to EHR/dictation software use and do not reflect on the overall quality of patient care. Also, please note that the electronic time recorded on this note does not necessarily reflect the actual time of the patient encounter. Departure Diagnosis: Primary Impression: Back pain with sciatica Condition: Fair Patient Instructions: Back Pain W/ Sciatica Additional Instructions: Llame al doctor GRISEL y manolo isabella LIDIA PARA DENTRO DE 1-2 [place].Dgale a la s ecretaria que nosotros le instruimos hacer esta lidia.Avise o llame si lindsey condicin se empeora antes de la lidia. Regresa aqui si peor o no mejor. JUAN LUIS LUA PA-C October 23, 2018 01:25
== END 2018-10-22 20:38 | disposition home or self-care (01) ==
LOC: FTE 14:53
DX: M54.42 Lumbago with sciatica, left side (principal); I10 Essential (primary) hypertension; E11.9 Type 2 diabetes mellitus without complications; J45.909 Unspecified asthma, uncomplicated; Z79.4 Long term (current) use of insulin
CPT/HCPCS: 36415; 71045; 74176; 80053; 81001; 85025; 96374; J1100; J1885; J7030; Z7502